=== PATIENT | male | born 1970 | race Caucasian/White ===

== ENCOUNTER 2025-07-21 02:56 | Emergency (ER) | payer OTHER ==
[2025-07-21] MEDS: Nystatin Topical Powder 15 GM Bottle TOP ONE (04:36)
== END 2025-07-21 05:00 | disposition home or self-care (01) ==
LOC: JP.ED 02:56
DX: Z72.821 Inadequate sleep hygiene (principal); Z88.8 Allergy status to other drugs, medicaments and biological substances; Z91.030 Bee allergy status; Z79.899 Other long term (current) drug therapy
CPT/HCPCS: 99282; A9270

== ENCOUNTER 2025-08-05 00:09 | Emergency (ER) | payer OTHER ==
[2025-08-05] MEDS: Tetracaine HCl/PF 0.5% 4 ML Bottle EYERT ONE (00:35)
== END 2025-08-05 00:56 | disposition home or self-care (01) ==
LOC: JP.ED 00:09
DX: H10.31 Unspecified acute conjunctivitis, right eye (principal); I48.91 Unspecified atrial fibrillation; Z91.048 Other nonmedicinal substance allergy status; Z91.030 Bee allergy status; Z79.899 Other long term (current) drug therapy; Z95.0 Presence of cardiac pacemaker
CPT/HCPCS: 99283

== ENCOUNTER 2025-08-09 01:46 | Emergency (ER) | payer MEDICAID, OTHER ==
[2025-08-09 02:43] LABS: BASOPHILS ABSOLUTE AUTO 0.08 K/uL (0.00-0.10); BASOPHILS PERCENT AUTO 0.6 % (0.1-1.3); EOSINOPHILS ABSOLUTE AUTO 0.29 K/uL (0.00-0.40); EOSINOPHILS PERCENT AUTO 2.3 % (0.0-5.4); IMMATURE GRAN ABSOLUTE AUTO 0.05 K/uL (0.00-0.23); IMMATURE GRAN PERCENT AUTO 0.4 % (0.0-0.7); LYMPHOCYTES ABSOLUTE AUTO 2.95 K/uL (0.8-3.3); LYMPHOCYTES PERCENT AUTO 23.4 % (11.4-47.7); MONOCYTES ABSOLUTE AUTO 0.83 K/uL (0.20-0.90); MONOCYTES PERCENT AUTO 6.6 % (3.3-12.6); NEUTROPHILS ABSOLUTE AUTO 8.39 K/uL (1.0-7.6); NEUTROPHILS PERCENT AUTO 66.7 % (40.0-78.1); PLATELET COUNT,PLT 255 K/uL (130-375); RED BLOOD CELL COUNT 4.44 M/uL (4.14-5.76); WHITE BLOOD CELL COUNT,WBC 12.6 K/uL (3.2-11.0)
[2025-08-09 03:04] LABS: A/G RATIO 0.8 (1.2-2.2); ALANINE AMINOTRANSFERASE,ALT 28 U/L (12-78); ASPARTATE AMNIOTRANSFERASE,AST 19 U/L (15-37); BILIRUBIN TOTAL 0.3 mg/dL (0.2-1.0); BLOOD UREA NITROGEN,BUN 8 mg/dL (7-18); CARBON DIOXIDE,CO2 31 mmol/L (21-32); CHLORIDE,CL 103 mmol/L (100-108); CREATININE 0.9 mg/dL (0.8-1.3); EST CRCL DRUG DOSING (CG) 88.75 mL/min; ESTIMATED GFR 102 mL/min (>60); GLUCOSE RANDOM 122 mg/dL (74-106); PROTEIN TOTAL,TP 7.1 g/dL (6.4-8.2); SODIUM,NA 142 mmol/L (140-148)
[2025-08-09 03:05] LABS: POTASSIUM,K 2.6 mmol/L (3.6-5.2)
[2025-08-09] MEDS: Potassium Chloride 20 MEQ Tab.ER PO ONE (03:39)
[2025-08-09] MEDS: Potassium Chloride 20 MEQ in Premix Bag 1 BAG IV ONE (03:39)
[2025-08-09] MEDS: Ketorolac 30 MG/ML SDV IVPUSH ONE (04:39)
[2025-08-09] MEDS: Furosemide 40 MG/4 ML VIAL IVPUSH ONE (04:39)
[2025-08-09 05:11] LABS: APPEARANCE,URINE CLOUDY (CLEAR); GLUCOSE,URINE NEGATIVE (NEGATIVE); OCCULT BLOOD,URINE LARGE (NEGATIVE)
[2025-08-09 05:13] LABS: SQUAMOUS EPITHELIAL CELLS,UR RARE /HPF; UROTHELIAL CELLS,URINE NOT SEEN /HPF
[2025-08-09] MEDS: Sodium Chloride 0.9% 10 ML Syringe FLUSH PRN (06:45)
[2025-08-09] MEDS: Iopamidol 612 MG/ML 100 ML Bottle IV SCH (06:45)
== END 2025-08-09 08:22 | disposition home or self-care (01) ==
LOC: JP.ED 01:46
DX: R60.0 Localized edema (principal); E87.6 Hypokalemia; N39.0 Urinary tract infection, site not specified; R31.9 Hematuria, unspecified; I48.91 Unspecified atrial fibrillation; I10 Essential (primary) hypertension; E78.00 Pure hypercholesterolemia, unspecified; Z91.030 Bee allergy status; Z91.048 Other nonmedicinal substance allergy status; Z79.01 Long term (current) use of anticoagulants; Z79.899 Other long term (current) drug therapy
CPT/HCPCS: 36415; 74178; 80053; 81001; 85025; 87086; 96365; 96366; 96375; 99283; 99284; A9270; J1938; J3480; Q9967

== ENCOUNTER 2025-08-21 16:53 | Emergency (ER) | payer MEDICAID ==
[2025-08-21] MEDS ORDERED: Diltiazem 120 MG Cap.CD PO ONE (19:01)
[2025-08-21] MEDS: Diltiazem 120 MG Cap.CD ONE (19:29)
[2025-08-21] MEDS: Diltiazem 120 MG Cap.CD PO ONE (19:29)
== END 2025-08-21 19:40 | disposition home or self-care (01) ==
LOC: JP.ED 16:53
DX: Z76.0 Encounter for issue of repeat prescription (principal); E78.00 Pure hypercholesterolemia, unspecified; I48.91 Unspecified atrial fibrillation; I10 Essential (primary) hypertension; Z95.0 Presence of cardiac pacemaker; Z86.16 Personal history of COVID-19; Z91.048 Other nonmedicinal substance allergy status; Z91.030 Bee allergy status; Z79.899 Other long term (current) drug therapy; Z79.02 Long term (current) use of antithrombotics/antiplatelets; Z79.85 Long-term (current) use of injectable non-insulin antidiabetic drugs
CPT/HCPCS: 99281; A9270

== ENCOUNTER 2025-09-25 00:43 | Emergency (ER) | payer MEDICAID, OTHER ==
[2025-09-25] MEDS ORDERED: Nystatin Topical Powder 15 GM Bottle TOP SCH (01:45)
== END 2025-09-25 02:13 | disposition home or self-care (01) ==
LOC: JP.ED 00:43
DX: B37.2 Candidiasis of skin and nail (principal); I48.91 Unspecified atrial fibrillation; I10 Essential (primary) hypertension; E78.00 Pure hypercholesterolemia, unspecified; Z86.16 Personal history of COVID-19; Z87.891 Personal history of nicotine dependence; Z91.030 Bee allergy status; Z91.048 Other nonmedicinal substance allergy status; Z79.01 Long term (current) use of anticoagulants; Z79.899 Other long term (current) drug therapy
CPT/HCPCS: 99283; A9270